=== PATIENT | female | born 1960 | race Caucasian/White ===

== ENCOUNTER 2018-06-23 15:34 | Emergency (ER) | payer OTHER ==
[~2018-06-23] VITALS: Ht 157.5 cm; Wt 49.9 kg
[2018-06-23] MEDS ORDERED: ATARAX25 MG (16:18)
[2018-06-23] MEDS ORDERED: LISINOPRIL40 MG (16:18)
[2018-06-23] MEDS ORDERED: HYDROCHLOROTHIA25 MG (16:18)
[2018-06-23] MEDS ORDERED: SIMVASTATIN20 MG (16:19)
== END 2018-06-24 00:05 | disposition home or self-care (01) ==
LOC: ER 15:34
DX: I10 Essential (primary) hypertension (principal); R51 Headache